=== PATIENT | male | born 1995 | race Caucasian/White ===

== ENCOUNTER 2018-10-08 19:16 | Observation (INO) | payer OTHER ==
[2018-10-08] MEDS ORDERED: Lorazepam 2 MG/ML VIAL ONE ×2 (20:16→20:42)
[2018-10-08 20:25] LABS: #Neutrophils 11.1 thou/uL (1.40-6.50); %Basophils 0.1 % (0.0-1.0); %Eosinophils 0.2 % (0.0-10.0); %Lymphocytes 7.7 % (21.0-51.0); %Monocytes 7.4 % (0.0-10.0); %Neutrophils 84.5 % (42.0-75.0); Hemoglobin 14.5 g/dL (14.0-18.0); Mean Corpuscular HGB CONC 33.9 g/dL (32.0-36.0); Mean Corpuscular Hemoglobin 30.2 pg (27.0-31.0); Mean Corpuscular Volume 89.2 fL (78.0-98.0); Mean Platelet Volume 8.8 fL (7.4-10.4); Platelet Count 222 thou/uL (130-400); RBC Distribution Width 11.8 % (11.5-14.5); Red Blood Cell (RBC) Count 4.79 mill/uL (4.70-6.10); White Blood Cell (WBC) Count 13.1 thou/uL (4.8-10.8)
[2018-10-08] MEDS ORDERED: Ondansetron PF 4 MG/2 ML Vial ONE (20:27)
[2018-10-08] MEDS ORDERED: Morphine 4 MG/ML VIAL ONE (20:27)
[2018-10-08] MEDS ORDERED: Lidocaine 1% (PF) 30 ML VIAL ONE (20:41)
[2018-10-08 20:54] LABS: CKMB 14.7 ng/mL (0-6.6)
--- NOTE | 2018-10-08 21:27 | RAD ---
CHEST FRONTAL RADIOGRAPH: 10/08/2018 HISTORY: Right lower chest pain. COMPARISON: None. FINDINGS: There is a right-sided pneumothorax, which is moderate in size. This pneumothorax extends from the r ight lung base to the right lung apex and measures at least 5 cm in greatest transverse dimension. T here is questionable mild early shift of the mediastinal structures to the left. No left-sided pneum othorax is seen. No focal consolidation or alveolar edema. IMPRESSION: Moderate-sized right pneumothorax with possible mild shift of the mediastinal structures to the left, which could signify a mild tension component. Results called to Ale William at 8:05 p.m. on 10/08/2018. CODE NABEEL POS: [facility]
--- NOTE | 2018-10-08 21:44 | RAD ---
PORTABLE CHEST: 10/08/2018 PROVIDED CLINICAL HISTORY: Post chest tube placement. COMPARISON: 10/08/2018 at 8:04 p.m. FINDINGS: There has been interval placement of a right-sided chest tube with prominent interval reduction in th e size of the previously described right-sided pneumothorax. A small right apical pneumothorax persi sts. The left lung remains clear. No pleural fluid or focal air space disease is evident. IMPRESSION: Prominent interval decrease in size in the right-sided pneumothorax, status post chest tube placement . POS: [facility]
[2018-10-08 22:43] LABS: ALT (SGPT) 22 U/L (8-55); AST (SGOT) 26 U/L (5-34); Albumin 4.8 g/dL (3.5-5.0); Alkaline Phosphatase 63 U/L (40-150); Anion Gap 16 mmol/L (10-20); BUN (Urea Nitrogen) 10 mg/dL (8.9-20.6); Bilirubin, Total 0.5 mg/dL (0.2-1.2); Calc. Creatinine Clearance 0 mL/min (70-130); Carbon Dioxide 26 mmol/L (22-29); Chloride 104 mmol/L (98-107); Estimated GFR-MDRD Greater than 90; Globulin 2.8 g/dL (2.4-3.5); Glucose 119 mg/dL (70-105); Potassium 3.7 mmol/L (3.5-5.1); Protein, Total 7.6 g/dL (6.0-8.3); Sodium 142 mmol/L (136-145)
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
[2018-10-08] MEDS ORDERED: HYDROcodone/Acetaminophen 5/325 mg Tablet ONE (22:59)
[2018-10-08 23:28] VITALS: BMI 22.8
[2018-10-08] MEDS ORDERED: Ondansetron ODT 4 MG TAB PO PRN (23:39)
[2018-10-08] MEDS ORDERED: Enoxaparin Sodium 40 MG/0.4 ML SYRINGE SC SCH (23:39)
[2018-10-08] MEDS ORDERED: Ondansetron PF 4 MG/2 ML Vial IVP PRN (23:39)
[2018-10-08] MEDS ORDERED: Lactated Ringer's 1,000 ML IV SCH (23:45)
[2018-10-09] MEDS ORDERED: Ketorolac Tromethamine 30 MG/ML VIAL IVP SCH ×2 (00:15→21:45)
[2018-10-09 00:24] LABS: Troponin I Less than 0.010 ng/mL (< 0.028)
[2018-10-09 00:27] LABS: CKMB 10.7 ng/mL (0-6.6); Critical Call CKMB RESULT DECREASING
[2018-10-09] MEDS ORDERED: Lactated Ringer's 500 ML IV SCH (00:45)
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
[2018-10-09] MEDS: Ibuprofen 800 MG TAB PO PRN ×2 (07:55→16:34)
[2018-10-09] MEDS ORDERED: Prevnar 13-Val Conj/PF 0.5 ML SYRINGE IM ONE (09:00)
--- NOTE | 2018-10-09 13:12 | RAD ---
CHEST ONE VIEW: INDICATIONS: History of pneumonia. COMPARISON: Prior study, dated 10/08/2018. FINDINGS: Small right apical pneumothorax remains. This has not appreciably changed in size from the compariso n, dated 10/08/2018 at 9:18 p.m. A right-sided thoracostomy tube has been intevally manipulated ante riorly and inferiorly, in the right hemithorax. The left lung is clear. The osseous structures are unchanged. IMPRESSION: Small residual right apical pneumothorax. POS: [facility]
[2018-10-09] MEDS: Acetaminophen 325 MG TAB PO PRN (19:38)
[2018-10-09] MEDS: Enoxaparin Sodium 40 MG/0.4 ML SYRINGE SC SCH (19:39)
[2018-10-10] MEDS: Ibuprofen 800 MG TAB PO PRN (00:03)
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
[2018-10-10] MEDS: Acetaminophen 325 MG TAB PO PRN ×2 (05:38→20:02)
[2018-10-10] MEDS ORDERED: Ketorolac Tromethamine 30 MG/ML VIAL IVP SCH (05:45)
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
--- NOTE | 2018-10-10 09:01 | RAD ---
FRONTAL RADIOGRAPH CHEST: 10/10/2018 HISTORY: Chest pain. Right-sided pneumothorax. COMPARISON: 10/09/2018 FINDINGS: Catheter tubing overlies the aspect of the right hemithorax, consistent with a stable chest t ube. Heart and mediastinal contours are stable. There is a tiny residual apical pneumothorax on the right. There is small volume subcutaneous emphyse ma in the right supraclavicular region and in the right axillary region. No pneumothorax is seen on the left. IMPRESSION: 1. Small caliber chest tube in stable position on the right. 2. Tiny right apical pneumothorax with small volume subcutaneous emphysema on the right. POS: [facility]
--- NOTE | 2018-10-10 12:53 | EKG ---
Test Reason : Blood Pressure : / mmHG Vent. Rate : 129 BPM Atrial Rate : 129 BPM P-R Int : 132 ms QRS Dur : 076 ms QT Int : 282 ms P-R-T Axes : 092 072 081 degrees QTc Int : 413 ms Sinus tachycardia Possible Left atrial enlargement Borderline ECG Confirmed by ERIC GRESHAM ([id number]), electronic news gathering editor BONILLA LEY ([id number]) on 10/10/2018 12:53:31 PM Referred By: Confirmed By:ERIC GRESHAM
[2018-10-10] MEDS: Enoxaparin Sodium 40 MG/0.4 ML SYRINGE SC SCH (20:00)
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
--- NOTE | 2018-10-11 09:15 | RAD ---
CHEST 1 VIEW: Date: 10/11/18 HISTORY: Pneumothorax. COMPARISON: Chest radiograph prior day. FINDINGS: Small right apical pneumothorax persists. The right side thoracostomy tube is similar. No left-sided pneumothorax. IMPRESSION: Small right apical pneumothorax persists with small volume right hemithorax subcutaneous emphysema. POS: [facility]
--- NOTE | 2018-10-11 10:54 | RAD ---
PORTABLE AP CHEST RADIOGRAPH: Date: 10-11-18 History: Chest tube placement. Follow up evaluation. Comparison: 10-11-18 FINDINGS: A very tiny right apical pneumothorax is noted but has diminished from the small right apical pneumot horax on the prior exam. Small caliber right sided thoracotomy tube remains in place. Subcutaneous em physema again overlies the right upper chest and right axillary region. Left lung is clear. Cardiac s ilhouette and pulmonary vasculature are within normal limits. No other interval change. IMPRESSION: Tiny right apical pneumothorax which does appear smaller in size compared to the most recent study on 05-11-18 at 0712 hours. Small caliber right sided thoracostomy tube is stable in position. POS: [facility]
[2018-10-11] MEDS: Acetaminophen 325 MG TAB PO PRN (19:53)
[2018-10-11] MEDS: Enoxaparin Sodium 40 MG/0.4 ML SYRINGE SC SCH (19:53)
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
[2018-10-12 07:57] VITALS: BP 104/69; TEMP 97.8
--- NOTE | 2018-10-12 08:22 | RAD ---
PORTABLE CHEST ONE VIEW: 10/12/2018 6:30 a.m. HISTORY: Pneumothorax. FINDINGS: The tiny right apical pneumothorax seen on the exam of the previous day is stable. A right-sided tho racostomy tube remains in place. POS: OFF
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
== END 2018-10-12 15:06 ==
LOC: ERS 19:16 → T4-B 22:12
PROVIDERS: ADMIT Student in an Organized Health Care Education/Training Program; ATTEND Student in an Organized Health Care Education/Training Program
DX: J93.0 Spontaneous tension pneumothorax (principal); F90.9 Attention-deficit hyperactivity disorder, unspecified type; Z87.891 Personal history of nicotine dependence; Z98.890 Other specified postprocedural states
CPT/HCPCS: 32551; 36415; 71045; 80053; 82550; 82553; 84484; 85025; 90471; 90670; 93005; 96361; 96372; 96374; 96375; 96376; G0009; G0378; J1650; J1885; J2001; J2060; J2270; J2405